=== PATIENT | male | born 1955 | race Caucasian/White ===

== ENCOUNTER → 2025-01-24 | Outpatient (CLI) | payer OTHER ==
[~2025-01-24] VITALS: Ht 180.3 cm; Wt 108.9 kg
[~2025-01-24] MED LIST: ACETAMINOPHEN 325 MG TAB PO PRN; ISOVUE-300 61% 100ML VIAL As Ordered ONE; LIDOCAINE 1% MDV 20ML VIAL As Ordered ONE; PERCOCET 5MG/325MG TAB PO PRN
[2025-01-24 10:15] VITALS: TEMP 99.3
[2025-01-24 10:19] LABS: HEMATOCRIT 39.8 % (42.0-52.0); HEMOGLOBIN 13.4 g/dl (13.5-17.5); MEAN CORPUSCULAR HEMOGLOBIN 31.9 pg (27.0-33.0); MEAN CORPUSCULAR HGB CONC 33.7 g/dl (32.0-36.5); MEAN CORPUSCULAR VOLUME 94.8 fl (80.0-96.0); PLATELET COUNT, AUTOMATED 112 10^3/uL (150-450); WHITE BLOOD COUNT 4.9 10^3/uL (4.0-10.0)
[2025-01-24 10:28] LABS: INR 1.16; PROTHROMBIN TIME 15.1 SECONDS (12.5-14.5)
[2025-01-24] MEDS: NS (Normal Saline) 0.9% 1,000 ML IV SCH (10:40)
[2025-01-24] MEDS: fentaNYL 100 MCG/2 ML INJECTION IV PRN (11:19)
[2025-01-24] MEDS: MIDAZOLAM INJ 2MG/2ML VIAL IV PRN (11:20)
[2025-01-24 13:30] VITALS: BP 129/59; O2SAT 94
== END ==
LOC: M IRPRO 09:39
PROVIDERS: ATTEND Internal Medicine Gastroenterology
DX: K74.60 Unspecified cirrhosis of liver (principal); C22.0 Liver cell carcinoma
CPT/HCPCS: 36415; 47000; 85027; 85610; 88305; C1769; C1887; C1894; J2250; J3010; Q9967